=== PATIENT | male | born 1960 | race Caucasian/White ===

== ENCOUNTER 2016-12-28 08:30 | Emergency (ER) | payer MEDICAID ==
[~2016-12-28] VITALS: Ht 165.1 cm; Wt 80.5 kg
[2016-12-28 08:34] VITALS: Ht 165.1 cm; Wt 80.5 kg
--- NOTE | 2016-12-28 09:07 | ERD ---
ER Documentation Chief Complaint Date/Time DATE: 12/28/16 TIME: 09:00 Chief Complaint LT WRIST PAIN S/P FALL FROM LADDER APPROXIMATLY 10-FEET. HPI 56-year-old male presents emergency department for a left-sided wrist pain started 4 days ago after falling from a ladder. Denies headache, head injury, neck pain, shoulder pain, chest pain, back pain, abdominal pain, nausea, vomiting, constipation, diarrhea, urinary symptoms, loss of bowel and bladder control, numbness or tingling sensation, fever, chills. No known drug allergies. No past medical history. No surgeries. Medication: Tylenol. Social: Right-handed. Denies smoking, use of alcohol, illegal drugs. ROS All systems reviewed and are negative except as per history of present illness. Medications Home Meds Active Scripts Hydrocodone/Acetaminophen ([place] 10-325 Tablet) 1 Each Tablet, 1 TAB PO Q6H Y for PAIN, #15 TAB Prov:FOSTERILABANTEMOAR F 12/28/16 Ibuprofen* (Motrin*) 800 Mg Tab, 800 MG PO Q8 Y for PAIN AND OR ELEVATED TEMP, # 30 TAB Prov:FOSTERILABANTEMOAR F 12/28/16 Allergies Allergies: Coded Allergies: No Known Allergy (Unverified , 12/28/16) Physical Exam Vitals Vital Signs Date Time Temp Pulse Resp B/P Pulse Ox O2 Delivery O2 Flow Rate FiO2 12/28/16 08:34 98.9 71 16 187/107 98 Physical Exam Const: [] Head: Atraumatic Eyes: Normal Conjunctiva ENT: Normal External Ears, Nose and Mouth. Neck: Full range of motion..~ No meningismus. Resp: Clear to auscultation bilaterally Cardio: Regular rate and rhythm, no murmurs Abd: Soft, non tender, non distended. Normal bowel sounds Skin: No petechiae or rashes Back: No midline or flank tenderness Ext: No cyanosis, or edema. Has limited range of motion to the left wrist mild tenderness. Has good and full function of the left hand/fingers with a score of 5/5 in flexion and extension.Left elbow is unremarkable. Left shoulder is unremarkable right upper extremity is unremarkable. Neur: Awake and alert Psych: Normal Mood and Affect Results 24 hrs Current Medications Medications (Trade) Dose Ordered Sig/Marta Route PRN Reason Start Time Stop Time Status Last Admin Dose Admin Acetaminophen/ Hydrocodone Bitart ([place] (5/325)) 1 tab ONCE ONCE PO 12/28/16 09:30 12/28/16 09:31 DC 12/28/16 09:09 Procedures/MDM Examination: Please see physical examination. Disease process, medical treatment was explained to the patient and family member. They verbalized understanding and agreed with the diagnostic tests, medical treatment, and follow-up care. Radiology: X-ray of the left wrist revealed distal radial and ulnar fractures. Treatment: Sugar tong splint Arm sling. Re-evaluation: No neurovascular deficits prior to and after the application of splint. Consultation: None. Differential diagnosis:Fracture versus displacement versus dislocation versus contusion versus sprain Medical decision makin-year-old male presents emergency department for a left-sided wrist pain started 4 days ago after falling from a ladder. Patient's complaint, patient's history about his complaint, my physical findings, diagnostic test results, my reevaluation are consistent my final diagnosis of fracture of the distal radius and ulna. Medications prescribed are the following: [place]. Motrin. Patient and family member are made aware of the side effects and adverse reactions of the medications prescribed. Instructed on when to seek emergent and medical attention in case allergic/anaphylactic reactions or severe side effects and or adverse reactions to medications. Patient and family member verbalized understanding. Patient instructed Instructed to follow-up with his PCP in 24-48 hours. PCP to refer patient to orthopedic doctor in the next 24-48 hours. Instructed to Call 911 for chest pain, shortness of breath. Advised to come back here in ED as soon as possible for severity of symptoms which includes but not limited to: any new symptoms; shortness of breath/difficulty of breathing; cardiovascular changes; severe gastrointestinal symptoms; signs and symptoms of bleeding and or infection; signs of compartment syndrome/neurovascular changes; neurological changes/deficits. Patient and family member verbalized understanding. Upon discharge, patient is alert and oriented x 4, speaks full and clear sentences, denies pain, has no neurological deficits, has no neurovascular deficits, difficulty of breathing. Breathing even and unlabored. Lung sounds are clear to auscultation. Not in distress. Appears comfortable. Ambulatory with steady gait. Appears satisfied with care provided here in ED. Departure Diagnosis: Primary Impression: Wrist injury Additional Impression: Radius and ulna distal fracture Condition: Stable Additional Instructions: Follow-up with PCP in the next 24-48 hours. PCP to refer patient to orthopedic doctor in the next 24-48 hours. TOSHIA ROLDAN Dec 28, 2016 09:07
[2016-12-28] MEDS ORDERED: HYDROCODONE/APAP (5/325) TAB PO ONE (09:30)
--- NOTE | 2016-12-28 09:55 | RADRPT ---
PROCEDURE: Left hand series CLINICAL INDICATION: Left hand pain after injury TECHNIQUE: Three views of the left hand were obtained. COMPARISON: No prior studies are available for comparison. FINDINGS: There is normal mineralization and alignment of the bones of the left hand. There is no evidence of acute fracture of the bones of the hand. Distal radial and ulnar fractures are incidentally noted. Joint spaces are well maintained. There is no evidence of osteophyte formation or erosions. The s oft tissues are within normal limits. IMPRESSION: 1. No evidence of acute fracture dislocation in the bones of the hand. 2. Distal radial ulnar fractures.. RPTAT: KK .Luis Terrell MD, Date Time Electronically viewed and signed by .Luis Terrell MD, MD on 12/28/2016 09:55 .B/
--- NOTE | 2016-12-28 09:56 | RADRPT ---
PROCEDURE: Forearm radiograph series. CLINICAL INDICATION: Left forearm pain TECHNIQUE: AP and lateral views of the left forearm were obtained. COMPARISON: No prior studies are available for comparison. FINDINGS: There is a comminuted and impacted distal radial fracture with intra-articular extension. There is also a mildly comminuted ulnar styloid fracture. There are no other fractures or dislocations identi fied. Soft tissue swelling is noted. The soft tissues are otherwise within normal limits. IMPRESSION: 1. Distal radial and ulnar fractures. RPTAT: KK .Luis Terrell MD, MD Date Time Electronically viewed and signed by .Luis Terrell MD, on 12/28/2016 09:55 .B/
--- NOTE | 2016-12-28 09:57 | RADRPT ---
PROCEDURE: Left wrist series. CLINICAL INDICATION: Left wrist pain after trauma TECHNIQUE: Three views of the left wrist were obtained. COMPARISON: No prior studies are available for comparison. FINDINGS: There is an acute impacted and comminuted fracture of the left distal radius with intra-articular ex tension. A mildly comminuted ulnar styloid fracture with questionable impaction of the distal ulna is also present. The remainder of the bones of the wrist appear intact. Carpal alignment is grossly within normal limits. Soft tissue swelling is noted. IMPRESSION: 1. Distal radial and ulnar fractures. RPTAT: KK .Luis Terrell MD, MD Date Time Electronically viewed and signed by .Luis Terrell MD, MD on 12/28/2016 09:56 .B/
[2016-12-28] MEDS ORDERED: IBUP800T25 PO (10:28)
[2016-12-28] MEDS ORDERED: HYDR-902 PO (10:29)
== END 2016-12-28 10:40 | disposition home or self-care (01) ==
LOC: FTE 08:30
DX: S52.572A Other intraarticular fracture of lower end of left radius, initial encounter for closed fracture (principal); S52.612A Displaced fracture of left ulna styloid process, initial encounter for closed fracture; W11.XXXA Fall on and from ladder, initial encounter; Y92.9 Unspecified place or not applicable
CPT/HCPCS: 29125; 73090; 73110; 73130; Z7502; Z7610